=== PATIENT | female | born 1995 ===

== ENCOUNTER 2019-12-09 01:19 | Inpatient (IN) ==
[2019-12-09] MEDS ORDERED: MEPERIDINE 25 MG/1 ML VIAL IV PRN (01:25)
[2019-12-09] MEDS ORDERED: ONDANSETRON 4 MG/2 ML VIAL IV PRN (01:25)
[2019-12-09] MEDS ORDERED: MEPERIDINE 50 MG/1 ML VIAL IV PRN (01:25)
[2019-12-09] MEDS ORDERED: BUTORPHANOL 2 MG/ML VIAL IV PRN (01:25)
[2019-12-09] MEDS ORDERED: OXYTOCIN/LR 20 UNIT/1,000 ML BAG IV SCH (01:30)
[2019-12-09] MEDS: LACTATED RINGERS 1,000 ML IV SCH ×2 (01:44→10:35)
[2019-12-09 01:50] LABS: Basophils % 0.3 % (0.0-0.8); Eosinophils # 0.1 10*3/uL (0.0-0.87); Eosinophils % 1.8 % (0.00-10.9); Hematocrit 30.9 VOL% (35.7-47.0); Immature Granulocytes % 0.9 %; Immature Granulocytes Absolute 0.06 #; Lymphocytes # 1.9 10*3/uL (1.4-4.0); Lymphocytes % 28.7 % (21.3-54.2); Mean Corpuscular HGB Conc 32.4 GM/DL (32-36); Mean Corpuscular Volume 89.8 FL (87-102); Monocytes % 11.5 % (1.7-12.7); Neutrophils % 56.8 % (38.7-73.9); Platelet Count 138 T/CUMM (130-400); Red Blood Count 3.44 MC/CUMM (3.8-5.5); Red Cell Distribution Width 13.5 % (9.3-17.3); White Blood Count 6.5 T/CUMM (4-12)
[2019-12-09 02:09] LABS: Alanine Aminotransferase 11 U/L (13-56); Albumin 2.6 G/DL (3.4-5.0); Alkaline Phosphatase 161 U/L (45-117); Aspartate Amino Transferase 12 U/L (0-37); Bilirubin,Total < 0.39 MG/DL (0.2-1.0); Blood Urea Nitrogen 10 MG/DL (7-18); Calcium 8.6 MG/DL (8.5-10.1); Estimated Glom Filtration Rate 93 ML/MIN; Glucose 132 MG/DL (74-106); Osmolality,Calculated 275.7 MOS/KG (273-304); Total Protein 6.7 G/DL (6.4-8.3)
[2019-12-09] MEDS ORDERED: NALOXONE 0.4 MG/ML VIAL IV PRN (09:42)
[2019-12-09] MEDS ORDERED: diphenhydrAMINE 50 MG/1 ML VIAL IV PRN ×2 (09:42)
[2019-12-09] MEDS ORDERED: LACTATED RINGERS 250 ML IV PRN (09:42)
[2019-12-09] MEDS ORDERED: LACTATED RINGERS 1,000 ML IV ONE (09:42)
[2019-12-09] MEDS ORDERED: CITRIC ACID/SODIUM CITRATE 30 ML UDCUP PO ONE (09:42)
[2019-12-09] MEDS ORDERED: ePHEDrine 50 MG/ML AMP IV PRN (09:42)
[2019-12-09] MEDS ORDERED: FAMOTIDINE 20 MG/2 ML VIAL IV ONE (09:42)
[2019-12-09] MEDS ORDERED: fentaNYL 2 MCG/ROPIV 0.2% EPID 100 ML EPIDURAL SCH (10:00)
[2019-12-09] MEDS ORDERED: LIDOCAINE 2% 5 ML VIAL ONE (10:22)
[2019-12-09] MEDS ORDERED: miSOPROStoL 200 MCG TABLET ONE (10:58)
[2019-12-09] MEDS ORDERED: METHYLERGONOVINE 0.2 MG/1 ML AMP ONE (10:58)
[2019-12-09 11:35] LABS: Apearance,Urine CLEAR (Clear); Bilirubin,Urine Negative (Negative); Blood, Urine Moderate mg/dL (Negative); Glucose,Urine (UA) Negative (Negative); Ketones,Urine Negative (Negative); Mucus,Urine Occasional /LPF (Occasional); Nitrite,Urine Negative (Negative); Protein,Urine Negative; RBC,Urine 41 /HPF (0-4); Urine Color Straw (Yellow); Urine Specific Gravity 1.009 (1.001-1.035); Urine Urobilinogen < 2.0 EU/DL (0.2-1.0); WBC,Urine 1 /HPF (0-6)
[2019-12-09 12:03] LABS: Cord Arterial Blood HCO3 24.2 MMOL/L
[2019-12-09 12:08] LABS: Cord Venous Blood PCO2 38.7 MMHG; Cord Venous Blood PO2 33.2
[2019-12-09] MEDS ORDERED: LANOLIN 50% CREAM 0.3 OZ TUBE TOP PRN (14:53)
[2019-12-09] MEDS ORDERED: HYDROCORTISONE 2.5% RECTAL CREAM 30 GM TUBE TOP PRN (14:53)
[2019-12-09] MEDS ORDERED: BENZOCAINE 20%/MENTHOL 0.5% SPRAY 56 GM CAN TOP PRN (14:53)
[2019-12-09] MEDS ORDERED: RHO(D) IMMUNE GLOBULIN 300 MCG SYRINGE IM ONE (14:53)
[2019-12-09] MEDS ORDERED: OXYTOCIN/LR 20 UNIT/1,000 ML BAG IV ONE (14:53)
[2019-12-09] MEDS ORDERED: BISACODYL 10 MG SUPP RECTAL PRN (14:53)
[2019-12-09] MEDS ORDERED: DIPH/TET/ACEL PERT BOOSTER VACCINE 0.5 ML VIAL IM ONE (14:53)
[2019-12-09] MEDS ORDERED: MEASLES/MUMPS/RUBELLA VACCINE 0.5 ML VIAL SUBCUT ONE (14:53)
[2019-12-09] MEDS ORDERED: ACETAMINOPHEN 325 MG TABLET PO PRN (14:53)
[2019-12-09] MEDS ORDERED: oxyCODONE/ACETAMINOPHEN 5-325 MG TABLET PO PRN ×2 (14:53)
[2019-12-09] MEDS ORDERED: WITCH HAZEL PADS 100/JAR TOP PRN (14:53)
[2019-12-09] MEDS: IBUPROFEN 800 MG TABLET PO PRN (15:50)
[2019-12-09] MEDS: DOCUSATE SODIUM 100 MG CAPSULE PO SCH (21:36)
[2019-12-10 06:30] LABS: Basophils % 0.4 % (0.0-0.8); Eosinophils # 0.1 10*3/uL (0.0-0.87); Eosinophils % 1.2 % (0.00-10.9); Hematocrit 27.6 VOL% (35.7-47.0); Hemoglobin 8.9 GM/DL (12.0-16.0); Immature Granulocytes % 0.6 %; Immature Granulocytes Absolute 0.05 #; Mean Corpuscular HGB Conc 32.2 GM/DL (32-36); Mean Corpuscular Volume 90.2 FL (87-102); Mean Platelet Volume 12.7 FL (9.6-12.0); Monocytes % 7.8 % (1.7-12.7); Platelet Count 120 T/CUMM (130-400); Red Blood Count 3.06 MC/CUMM (3.8-5.5); Red Cell Distribution Width 13.5 % (9.3-17.3); White Blood Count 8.4 T/CUMM (4-12)
[2019-12-10] MEDS: IBUPROFEN 800 MG TABLET PO PRN (06:32)
[2019-12-10] MEDS: DOCUSATE SODIUM 100 MG CAPSULE PO SCH (20:47)
[2019-12-11] MEDS: IBUPROFEN 800 MG TABLET PO PRN ×2 (00:16→06:30)
[2019-12-11] MEDS: DOCUSATE SODIUM 100 MG CAPSULE PO SCH (09:24)
[2019-12-11 11:27] VITALS: BP 107/59
== END 2019-12-11 13:50 | disposition home or self-care (01) | DRG 807 ==
LOC: N.LDOUT 01:19 → N.LD 01:20 → N.OB 15:01
PROVIDERS: ADMIT Obstetrics & Gynecology; ATTEND Obstetrics & Gynecology

== ENCOUNTER 2021-10-15 00:25 | Inpatient (IN) ==
[2021-10-15] MEDS ORDERED: ONDANSETRON 4 MG/2 ML VIAL IV PRN (01:06)
[2021-10-15] MEDS ORDERED: MEPERIDINE 50 MG/1 ML VIAL IV PRN (01:06)
[2021-10-15] MEDS ORDERED: BUTORPHANOL 2 MG/ML VIAL IV PRN (01:06)
[2021-10-15 01:26] LABS: Basophils % 0.4 % (0.0-0.8); Eosinophils # 0.1 10*3/uL (0.0-0.87); Eosinophils % 1.6 % (0.00-10.9); Hematocrit 31.7 VOL% (35.7-47.0); Immature Granulocytes % 0.9 %; Immature Granulocytes Absolute 0.05 #; Lymphocytes # 1.7 10*3/uL (1.4-4.0); Lymphocytes % 29.6 % (21.3-54.2); Mean Corpuscular HGB Conc 31.5 GM/DL (32-36); Mean Corpuscular Volume 85.9 FL (87-102); Monocytes % 10.3 % (1.7-12.7); Neutrophils % 57.2 % (38.7-73.9); Platelet Count 108 T/CUMM (130-400); Red Blood Count 3.69 MC/CUMM (3.8-5.5); Red Cell Distribution Width 14.9 % (9.3-17.3); White Blood Count 5.7 T/CUMM (4-12)
[2021-10-15] MEDS ORDERED: INFLUENZA VIRUS VACCINE 0.5 ML SYRINGE IM ONE (01:29)
[2021-10-15] MEDS ORDERED: LACTATED RINGERS 1,000 ML IV SCH ×2 (01:30→08:00)
[2021-10-15] MEDS ORDERED: OXYTOCIN/LR 20 UNIT/1,000 ML BAG IV PRN (04:32)
[2021-10-15] MEDS ORDERED: ePHEDrine 50 MG/ML VIAL IV PRN (07:44)
[2021-10-15] MEDS ORDERED: FAMOTIDINE 20 MG/2 ML VIAL IV ONE (07:44)
[2021-10-15] MEDS ORDERED: LACTATED RINGERS 1,000 ML IV ONE (07:44)
[2021-10-15] MEDS ORDERED: CITRIC ACID/SODIUM CITRATE 30 ML UDCUP PO ONE (07:44)
[2021-10-15] MEDS ORDERED: NALOXONE 0.4 MG/ML VIAL IV PRN (07:45)
[2021-10-15] MEDS ORDERED: diphenhydrAMINE 50 MG/1 ML VIAL IV PRN ×2 (07:45)
[2021-10-15] MEDS ORDERED: PROMETHAZINE 25 MG/1 ML VIAL IM ONE (07:45)
[2021-10-15] MEDS ORDERED: fentaNYL 2 MCG/ROPIV 0.2% EPID 100 ML EPIDURAL SCH (08:00)
[2021-10-15 10:09] LABS: Bacteria,Urine Moderate /HPF (Few); Bilirubin,Urine Negative (Negative); Blood, Urine Moderate mg/dL (Negative); Glucose,Urine (UA) Negative (Negative); Ketones,Urine Negative (Negative); Mucus,Urine Occasional /LPF (Occasional); Nitrite,Urine Positive (Negative); Protein,Urine Negative; RBC,Urine 33 /HPF (0-4); Urine Appearance CLEAR (Clear); Urine Color Yellow (Yellow); Urine Specific Gravity 1.008 (1.001-1.035); Urine Urobilinogen < 2.0 EU/DL (0.2-1.0)
[2021-10-15] MEDS ORDERED: CARBOPROST TROMETHAMINE 250 MCG/ML AMP IM ONE (12:36)
[2021-10-15] MEDS ORDERED: miSOPROStoL 200 MCG TABLET ONE (12:36)
[2021-10-15] MEDS ORDERED: METHYLERGONOVINE 0.2 MG/1 ML AMP ONE (12:36)
[2021-10-15] MEDS ORDERED: miSOPROStoL 200 MCG TABLET PO ONE (13:04)
[2021-10-15 13:08] LABS: Cord Arterial Blood HCO3 22.9 MMOL/L
[2021-10-15 13:11] LABS: Cord Venous Blood HCO3 23.6 MMOL/L; Cord Venous Blood PCO2 40.5 MMHG; Cord Venous Blood PO2 33.2
[2021-10-15] MEDS ORDERED: METHYLERGONOVINE 0.2 MG/1 ML AMP IM ONE (13:30)
[2021-10-15 14:30] LABS: Hematocrit 32.8 VOL% (35.7-47.0); Hemoglobin 10.4 GM/DL (12.0-16.0)
[2021-10-15] MEDS ORDERED: OXYTOCIN/LR 20 UNIT/1,000 ML BAG IV ONE ×2 (15:15→16:35)
[2021-10-15] MEDS ORDERED: BENZOCAINE 20%/MENTHOL 0.5% SPRAY 56 GM CAN TOP PRN (16:35)
[2021-10-15] MEDS ORDERED: RHO(D) IMMUNE GLOBULIN 300 MCG SYRINGE IM ONE (16:35)
[2021-10-15] MEDS ORDERED: BISACODYL 10 MG SUPP RECTAL PRN (16:35)
[2021-10-15] MEDS ORDERED: MEASLES/MUMPS/RUBELLA VACCINE 0.5 ML VIAL SUBCUT ONE (16:35)
[2021-10-15] MEDS ORDERED: ACETAMINOPHEN 325 MG TABLET PO PRN (16:35)
[2021-10-15] MEDS ORDERED: WITCH HAZEL PADS 100/JAR TOP PRN (16:35)
[2021-10-15] MEDS ORDERED: oxyCODONE/ACETAMINOPHEN 5-325 MG TABLET PO PRN (16:35)
[2021-10-15] MEDS ORDERED: HYDROCORTISONE 2.5% RECTAL CREAM 30 GM TUBE TOP PRN (16:35)
[2021-10-15] MEDS ORDERED: LANOLIN 50% CREAM 0.3 OZ TUBE TOP PRN (16:35)
[2021-10-15] MEDS ORDERED: DIPH/TET/ACEL PERT BOOSTER VACCINE 0.5 ML VIAL IM ONE (16:35)
[2021-10-15] MEDS: IBUPROFEN 800 MG TABLET PO PRN (16:58)
[2021-10-15] MEDS: oxyCODONE/ACETAMINOPHEN 5-325 MG TABLET PO PRN (16:58)
[2021-10-15] MEDS: DOCUSATE SODIUM 100 MG CAPSULE PO SCH (21:15)
[2021-10-16 01:13] LABS: Hematocrit 21.3 VOL% (35.7-47.0); Hemoglobin 6.9 GM/DL (12.0-16.0)
[2021-10-16] MEDS ORDERED: SODIUM CHLORIDE 0.9% 1,000 ML IV PRN (01:18)
[2021-10-16] MEDS: IBUPROFEN 800 MG TABLET PO PRN ×3 (05:03→20:12)
[2021-10-16] MEDS: FERROUS SULFATE 325 MG TABLET PO SCH ×3 (08:38→20:10)
[2021-10-16] MEDS: DOCUSATE SODIUM 100 MG CAPSULE PO SCH ×2 (08:38→20:10)
[2021-10-16 12:12] LABS: Basophils % 0.2 % (0.0-0.8); Eosinophils % 0.3 % (0.00-10.9); Hematocrit 27.7 VOL% (35.7-47.0); Hemoglobin 9.2 GM/DL (12.0-16.0); Immature Granulocytes Absolute 0.09 #; Lymphocytes # 1.5 10*3/uL (1.4-4.0); Lymphocytes % 16.5 % (21.3-54.2); Mean Corpuscular HGB Conc 33.2 GM/DL (32-36); Mean Corpuscular Volume 87.9 FL (87-102); Mean Platelet Volume 14.1 FL (9.6-12.0); Monocytes % 7.5 % (1.7-12.7); Neutrophils % 74.5 % (38.7-73.9); Platelet Count 80 T/CUMM (130-400); Red Blood Count 3.15 MC/CUMM (3.8-5.5); Red Cell Distribution Width 14.6 % (9.3-17.3)
[2021-10-16] MEDS: oxyCODONE/ACETAMINOPHEN 5-325 MG TABLET PO PRN (13:32)
[2021-10-17] MEDS: IBUPROFEN 800 MG TABLET PO PRN (02:50)
[2021-10-17] MEDS: FERROUS SULFATE 325 MG TABLET PO SCH (09:06)
[2021-10-17] MEDS: DOCUSATE SODIUM 100 MG CAPSULE PO SCH (09:06)
[2021-10-17] MEDS: oxyCODONE/ACETAMINOPHEN 5-325 MG TABLET PO PRN (09:06)
[2021-10-17 11:43] VITALS: BP 110/48
[2021-10-17] MEDS ORDERED: INFLUENZA VIRUS VACCINE 0.5 ML SYRINGE IM ONE (11:53)
== END 2021-10-17 12:15 | disposition home or self-care (01) | DRG 807 ==
LOC: N.LD 00:25 → N.OB 16:14
PROVIDERS: ADMIT Obstetrics & Gynecology; ATTEND Obstetrics & Gynecology